=== PATIENT | female | born 1995 | race African-American/Black ===

== ENCOUNTER 2019-04-12 16:29 | Emergency (ER) | payer MEDICAID, SELFPAY ==
[2019-04-12 16:51] VITALS: BP 127/79; PULSE 88; RESP 16; TEMP 36.3; O2SAT 100
--- NOTE | 2019-04-12 17:13 | ED.GENADULT ---
HPI - General Adult General Chief complaint: Dental/Oral Stated complaint: toothache Time Seen by Provider: 04/12/19 17:13 Source: patient Mode of arrival: ambulatory Limitations: no limitations History of Present Illness HPI narrative: 23-year-old female patient presents to the [facility] with complaints of left-sided dental pain for the past 2 to 3 days. Patient states that she has tried ibuprofen to help with pain but it has not helped much. Patient states that she did have an appointment to see her dentist yesterday however when she got to the appointment they states that the dentist had already left and they rescheduled her for next Tuesday. Patient denies any fevers that she is aware of but states that today she noticed that her left cheek is a little bit more swollen. Patient denies any chest pain, shortness of breath or trouble swallowing. Related Data Allergies Allergy/AdvReac Type Severity Reaction Status Date / Time No Known Allergies Allergy Unverified 04/12/19 16:50 Review of Systems Review of Systems: Narrative: CONSTITUTIONAL: Denies fever, chills, or sweats. EYES: Denies visual changes, redness, or discharge. ENT: Denies rhinorrhea, congestion, sore throat, or otalgia. Positive left-sided dental pain x2 to 3 days. CARDIOVASCULAR: Denies chest pain, palpitations, or edema. RESPIRATORY: Denies cough or dyspnea. GASTROINTESTINAL: Denies abdominal pain, nausea, vomiting, or diarrhea. GENITOURINARY: Denies dysuria or hematuria. SKIN: Denies rash or itching. MUSCULOSKELETAL: Denies back pain, joint pain, or myalgia. NEUROLOGIC: Denies headache, numbness, or weakness. PSYCHIATRIC: Denies anxiety or depression. PMFSH Family History Family History Grandparent Family history of lung cancer Social History Social History Smoking status: Never smoker Alcohol intake: never Comments At the time of my signature I agree with nursing past medical history, surgical, social, and family history. There is no relevant family history pertinent to the presenting complaint. Exam Narrative: Exam Narrative: GENERAL: Well-appearing, well-nourished, and in no acute distress. HEAD: Normocephalic, atraumatic. EYES: PERRLA and EOMI. ENT: Nares clear, no rhinorrhea or epistaxis. Mucous membranes moist. Patient does have some erythema and tenderness noted to the left upper gum area right above the first bicuspid. NECK: Supple. No lymphadenopathy CHEST: Clear to auscultation. No respiratory distress. HEART: Regular rate and rhythm. No murmur heard. Normal peripheral pulses. ABDOMEN: Soft, nontender, nondistended, normal active bowel sounds. EXTREMITIES: Normal range of motion. No edema. SKIN: Warm, dry, no rash. NEURO: No focal deficits. Alert and oriented x3. Course Vital Signs Vital signs: Vital Signs Temperature 36.3 C L 04/12/19 16:51 Pulse Rate 88 04/12/19 16:51 Respiratory Rate 16 04/12/19 16:51 Blood Pressure 127/79 04/12/19 16:51 Pulse Oximetry 100 04/12/19 16:51 Temperature 36.3 C L 04/12/19 16:51 Pulse Rate 88 04/12/19 16:51 Respiratory Rate 16 04/12/19 16:51 Blood Pressure 127/79 04/12/19 16:51 Pulse Oximetry 100 04/12/19 16:51 Vital signs reviewed. Medical Decision Making Differential Diagnosis Differential Diagnosis: Differential diagnosis: Dental caries, periodontal disease, avulsed tooth, tooth infections, mandibular infection, Jimi's angiana, upper tooth infection, dry socket, gingivitis, acute necrotizing ulcerative gingivitis, sialolithiasis. Discussed with patient looks like she is got some kind of infection or possibly an abscess to that left upper gum area and therefore we will discharge her home with some antibiotics and I will also give her a mild narcotic to help with the pain. Discussed with patient that she should continue to follow-up with her dentis
== END 2019-04-12 17:25 | disposition home or self-care (01) ==
PROVIDERS: Emergency Provider Nurse Practitioner Family
DX: K04.7 Periapical abscess without sinus (principal)
CPT/HCPCS: 99213; G0463

== ENCOUNTER 2020-01-18 09:22 | Emergency (ER) | payer BC, SELFPAY ==
[2020-01-18 09:30] VITALS: BP 130/79; PULSE 94; RESP 20; TEMP 36.9; O2SAT 100
--- NOTE | 2020-01-18 09:34 | ED.GENADULT ---
HPI - General Adult General Chief complaint: Urogenital-Female Stated complaint: toothpain/vaginal discharge Time Seen by Provider: 01/18/20 09:25 Source: patient Mode of arrival: ambulatory Limitations: no limitations History of Present Illness HPI narrative: 24 y/o AA female. PMH includes: None reported. Presents to ED today with acute complaints of urinary frequency, urgency, and malodorous urine for past 'few days'. In addition, client notes to have noticed irregular vaginal discharge clear and some odor . She denies fever, chills, abdominal pain, flank pain, N/V/D. No gross hematuria. She reports to have been sexually active with condoms sometimes . She relays to have had only one sexual partner in past 1 year. [facility] 1 week ago. She is also concerned that her wisdom tooth has been hurting her , but adds she plans to follow-up with her established dentist in the next few weeks. No additional acute c/o upon PE. Related Data Home Medications Medication Instructions Recorded Confirmed cyclobenzaprine 10 mg PO BID PRN 01/18/20 01/18/20 Allergies Allergy/AdvReac Type Severity Reaction Status Date / Time red dye Allergy Hives Verified 01/18/20 09:39 Review of Systems Review of Systems: Narrative: CONSTITUTIONAL: Denies fever, chills, sweats. EYES: Denies visual changes, redness, discharge. ENT: Denies rhinorrhea, congestion, sore throat, otalgia. Positive Dental Pain. CARDIOVASCULAR: Denies chest pain, palpitations, edema. RESPIRATORY: Denies dyspnea, wheezing, cough GASTROINTESTINAL: Denies abdominal pain, nausea, vomiting, diarrhea. GENITOURINARY: Denies hematuria. Positive urinary frequency, urgency, abnormal vaginal discharge. SKIN: Denies rash or itching. MUSCULOSKELETAL: Denies acute back pain, joint pain, or myalgia. NEUROLOGIC: Denies numbness, or focal weakness. PSYCHIATRIC: Denies anxiety or depression. [facility] Family History Family History Grandparent Family history of lung cancer Social History Social History Smoking status: Never smoker Alcohol intake: never Exam Narrative: Exam Narrative: GENERAL: This is a well-nourished, well-developed patient, in no apparent distress. HEAD: normocephalic, atraumatic. EYES: PERRL. Sclera clear/white. Vision is grossly intact. EARS: External ears normal, auditory canals clear and without drainage, TMs normal without perforation. Hearing grossly intact. NOSE: External nose normal with no obvious nasal discharge, nares without redness, no rhinorrhea. THROAT/DENTAL: Mucous membranes moist, posterior pharynx clear. There is wisdom molar eruption at posterior LT lower level. There is no obvious soft tissue swelling or fluctuance. There is erythema, dental or gum bleeding. No significant tenderness to area. NECK: Neck supple, non-tender without lymphadenopathy, masses or thyromegaly. CARDIOVASCULAR: Regular rate and rhythm without murmurs, gallops, or rubs. RESPIRATORY: Clear to auscultation. Breath sounds equal bilaterally. No wheezes, rales, or rhonchi. GASTROINTESTINAL: Abdomen soft, non-tender, nondistended. Bowel sounds are active. No hepato-splenomegaly, or palpable masses. No guarding. There is no appreciated CVA tenderness. SKIN: warm, intact with no suspicious lesions or rash, good texture and turgor. NEURO: awake, alert, and oriented to person, place and time. There were no obvious focal neurologic abnormalities. Steady gait EXTREMITIES: Normal range of motion. No edema. No calf tenderness. Negative Homans sign bilaterally. BACK: Nontender without deformity or crepitance. No flank tenderness. : Deferred. Const: General: no acute distress Orientation/consciousness: patient oriented x3 Course Course Emergency Course: Laboratory studies sent for analysis (GC/Chlamydia, Trichomonas, UA, ,HCG U). This has been sent via Urine specimen, as we do not curren
[2020-01-18] MEDS: cefTRIAXone 250 MG VIAL IM (10:19)
== END 2020-01-18 10:47 | disposition home or self-care (01) ==
PROVIDERS: Emergency Provider Nurse Practitioner Adult Health
DX: N39.0 Urinary tract infection, site not specified (principal); N89.8 Other specified noninflammatory disorders of vagina; K08.89 Other specified disorders of teeth and supporting structures
CPT/HCPCS: 81003; 81025; 87086; 87088; 87491; 87591; 87661; 96372; 99214; G0463; J0696

== ENCOUNTER 2021-01-01 17:56 | Emergency (ER) | payer OTHER, SELFPAY ==
[2021-01-01 18:09] VITALS: BP 150/85; PULSE 101; RESP 14; TEMP 36.3; O2SAT 100
--- NOTE | 2021-01-01 18:11 | ECG_ITS ---
Measurements Intervals [place] Rate: 89 P: 56 TX: 143 QRS: 50 QRSD: 75 T: -1 QT: 334 QTc: 406 Interpretive Statements SINUS RHYTHM POSSIBLE LEFT ATRIAL ENLARGEMENT BORDERLINE ST-T WAVE ABNORMALITY- INFERIOR LEADS BORDERLINE ECG Electronically Signed On 01-01-2021 20:33:34 CDT by Sonu Londono D.O.
[2021-01-01 18:35] LABS: Basophils Percent Auto 0.6 % (0.2-1.2); Eosinophils Absolute Auto 0.1 K/mm3 (0-0.3); Hematocrit 34.8 % (37.0-47.0); Hemoglobin 11.2 g/dL (12.0-15.0); Immature Granulocyte Absolute 0.01 K/mm3 (0.00-0.031); Immature Granulocyte Percent A 0.2 % (0-0.5); Lymphocytes Absolute Auto 1.85 K/mm3 (0.9-3.2); Lymphocytes Percent Auto 36.6 % (18.3-44.2); Mean Corpuscular HGB Conc 32.2 g/dl (32-36); Mean Corpuscular Hemoglobin 28.6 pg (26-34); Mean Platelet Volume 8.7 fl (7.4-10.4); Monocytes Absolute Auto 0.6 K/mm3 (0.1-0.6); Monocytes Percent Auto 11.5 % (2.6-8.5); Neutrophils Absolute Auto 2.5 K/mm3 (1.3-6.7); Neutrophils Percent Auto 50.1 % (45.5-73.1); Platelet Count Result 374 k/mm3 (150-375); Red Blood Count 3.91 M/mm3 (4.2-5.4); Red Cell Distribution Width 12.5 % (11.5-14.5); White Blood Count 5.1 K/mm3 (4.5-10.0)
[2021-01-01 18:48] LABS: Anion Gap 9 mmol/L (8-16); Blood Urea Nitrogen 7 mg/dL (7-17); Calcium 9.7 mg/dL (8.4-10.2); Carbon Dioxide 27 mmol/L (22-30); Chloride 105 mmol/L (98-107); Estimated CRCL calculation 93 ml/min; Estimated Glomerular Filt Rate > 60; Glucose 98 mg/dL (65-110); Potassium 3.7 mmol/L (3.4-5.0); Sodium 141 mmol/L (137-145)
[2021-01-01 19:30] VITALS: BP 122/73; PULSE 76; RESP 16; O2SAT 100
[2021-01-01 19:56] VITALS: BP 121/80; PULSE 84
[2021-01-01 19:57] VITALS: BP 120/87; PULSE 98
[2021-01-01 19:58] VITALS: BP 114/74; PULSE 88
[2021-01-01 20:04] LABS: Add Urine Microscopic? YES; Appearance Urine Cloudy (Clear); Bilirubin Urine Negative (Negative); Blood Urine Negative (Negative); Color Urine Yellow (Yellow); Glucose Urine UA Negative (Negative); Ketones Urine Negative (Negative); Leukocyte Esterase Ur Trace LEU/UL (Negative); Mucus Urine Few /lpf; Nitrate Urine Negative (Negative); Protein Urine 1+ mg/dL (Negative); Specific Grav Ur 1.021 (1.001-1.035); Squamous Epithelial Cell Urine Many /hpf (Few); Urobilinogen Urine Negative mg/dL (<2.0)
--- NOTE | 2021-01-01 20:08 | ED.GENADULT ---
HPI - General Adult General Chief complaint: Syncope Stated complaint: near syncopal episode yesterday Time Seen by Provider: 01/01/21 19:18 Source: patient Mode of arrival: ambulatory Limitations: no limitations History of Present Illness HPI narrative: Patient is a 25-year-old female with no chronic medical history presenting with chief complaint of feeling as if she was going to pass out yesterday while at work. Patient reports that she has been working and standing for 20 to 30 minutes when she suddenly felt as if she was going to pass out. Patient states that she sat for 10 to 15 minutes and her symptoms resolved without any other interventions. Patient reports that she has had this happen in the past and seen a primary care provider who told her that it sounded like anxiety. Patient reports the last time this happened she has some blurry vision and chest tightness accompanying her symptoms. Patient denies any abnormal symptoms at this time but states that her mother wanted her to be evaluated. Patient denies any headache, change in vision or hearing, nausea, vomiting, neurological deficit, chest pain, shortness of breath or any other symptoms. Patient denies known . Patient denies any recreational drug usage or head injury. Related Data Home Medications Medication Instructions Recorded Confirmed cyclobenzaprine 10 mg PO BID PRN 01/18/20 12/12/20 Allergies Allergy/AdvReac Type Severity Reaction Status Date / Time red dye Allergy Hives Verified 01/01/21 19:31 Review of Systems Review of Systems: CONSTITUTIONAL: Denies fever, chills, or sweats. EYES: Denies visual changes, redness, or discharge. ENT: Denies rhinorrhea, congestion, sore throat, or otalgia. CARDIOVASCULAR: Denies chest pain, palpitations, or edema. RESPIRATORY: Denies cough or dyspnea. GASTROINTESTINAL: Denies abdominal pain, nausea, vomiting, or diarrhea. GENITOURINARY: Denies dysuria or hematuria. SKIN: Denies rash or itching. MUSCULOSKELETAL: Denies back pain, joint pain, or myalgia. NEUROLOGIC: Reports resolved near syncopal episode denies headache, numbness, dizziness, or weakness. PSYCHIATRIC: Denies anxiety or depression. [facility] Past Medical History Medical History Back pain Carpal tunnel syndrome History of benign ovarian tumor Surgical History Surgical History History of left oophorectomy Family History Family History Grandparent Family history of lung cancer Social History Social History Smoking status: Never smoker Alcohol intake: never Exam Narrative: GENERAL: Well-appearing, well-nourished, and in no acute distress. HEAD: Normocephalic, atraumatic. EYES: PERRLA and EOMI. ENT: Nares clear, no rhinorrhea or epistaxis. Mucous membranes moist. Oropharynx without tonsillar hypertrophy exudate or other lesions. Bilateral TMs pearly urban nonbulging NECK: Supple. No adenopathy or masses. Range of motion intact. CHEST: Clear to auscultation. No respiratory distress. No wheezes rales or rhonchi HEART: Regular rate and rhythm. No murmur heard. Normal peripheral pulses. ABDOMEN: Soft, nontender, nondistended, normal active bowel sounds. EXTREMITIES: Normal range of motion. No edema. SKIN: Warm, dry, no rash. NEURO: No focal deficits. Alert and oriented x3. Patient able to ambulate without difficulty. Patient able to follow commands appropriately. PSYCH: Normal mood and affect. Course Vital Signs Vital signs: Vital Signs Temperature 97.4 F L 01/01/21 18:09 Pulse Rate 101 H 01/01/21 18:09 Respiratory Rate 14 01/01/21 18:09 Blood Pressure 150/85 H 01/01/21 18:09 Pulse Oximetry 100 01/01/21 18:09 Temperature 97.4 F L 01/01/21 18:09 Pulse Rate 88 01/01/21 19:58 Respirator
[2021-01-01 20:35] VITALS: BP 113/78; PULSE 85; RESP 18; O2SAT 100
== END 2021-01-01 20:36 | disposition home or self-care (01) ==
PROVIDERS: Physician Assistant; Emergency Provider Emergency Medicine
DX: R55 Syncope and collapse (principal); R82.998 Other abnormal findings in urine; R94.31 Abnormal electrocardiogram [ECG] [EKG]
CPT/HCPCS: 36415; 80048; 81001; 81025; 85025; 93005; 99284

== ENCOUNTER 2021-12-30 15:25 | Outpatient (CLI) | payer OTHER, SELFPAY ==
[2021-12-30 17:29] LABS: Hemoglobin A1C 5.3 % (<5.7)
[2021-12-30 18:43] LABS: Vitamin D 25 Hydroxy 22.5 ng/mL
== END 2021-12-30 15:26 | disposition home or self-care (01) ==
LOC: ANHLAB 15:27
PROVIDERS: Visit Provider Obstetrics & Gynecology
DX: E04.9 Nontoxic goiter, unspecified (principal)
CPT/HCPCS: 36415; 82306; 83036; 84436; 84443

== ENCOUNTER 2023-06-28 10:59 | Outpatient (CLI) | payer OTHER, SELFPAY ==
[2023-06-28 12:06] LABS: Hemoglobin A1C 5.2 % (<5.7)
[2023-06-28 12:24] LABS: Free T4 Free Thyroxine 1.18 ng/mL (0.78-2.19)
[2023-06-28 12:25] LABS: HIV 1/2 Ab P24 Ag Result Negative (Negative)
[2023-06-28 12:37] LABS: Hepatitis B Surface Antigen Negative (Negative)
[2023-06-28 12:54] LABS: Hepatitis C Virus Antibody Negative (Negative)
[2023-06-28 19:58] LABS: Progesterone 11.2 ng/mL
[2023-06-29 09:11] LABS: Rapid Plasma Reagin Non-Reactive (NonReactive)
[2023-06-29 16:33] LABS: Insulin Level Total 23.6 uIU/mL
[2023-06-29 17:32] LABS: FSH 2.5 mIU/mL; LH 1.3 mIU/mL
[2023-06-30 19:03] LABS: Testosterone Free 4.1 pg/mL (0.1-6.4); Testosterone Total 43 ng/dL (2-45)
== END 2023-06-28 11:00 | disposition home or self-care (01) ==
PROVIDERS: Visit Provider Obstetrics & Gynecology
DX: N85.2 Hypertrophy of uterus (principal); N92.0 Excessive and frequent menstruation with regular cycle
CPT/HCPCS: 36415; 83001; 83002; 83036; 83525; 84144; 84402; 84403; 84439; 84443; 86592; 86703; 86803; 87340; G0432

== ENCOUNTER 2023-06-30 14:34 | Outpatient (CLI) | payer OTHER, SELFPAY ==
--- NOTE | ~2023-06-30 | US_ITS ---
EXAMINATION: US pelvic complete w TV DATE: 06/30/2023 15:09 INDICATION: Hypertrophy of uterus. TECHNIQUE: Multiple transabdominal and transvaginal sonographic images of the pelvis were obtained. COMPARISON: None. FINDINGS: TRANSABDOMINAL ULTRASOUND: The uterus measures 9.0 x 5.1 x 5.5 cm. There is no free fluid in the pelvis. TRANSVAGINAL ULTRASOUND: The endometrial complex measures 15 mm in thickness. There is a 9.7 x 6.4 x 11.1 cm mass of mixed ech ogenicity in the right adnexa. The left ovary is not visualized. IMPRESSION: 1. 11.1 cm mass in right adnexa, which may be a dermoid or neoplasm. Pelvis MRI without and with cont rast is recommended. 2. Left ovary not visualized. Reviewed, dictated and finalized at location E. IMPRESSION: 1. 11.1 cm mass in right adnexa, which may be a dermoid or neoplasm. Pelvis MRI without and with contrast is recommended. 2. Left ovary not visualized.
== END 2023-06-30 14:35 ==
PROVIDERS: PCP Obstetrics & Gynecology; Visit Provider Obstetrics & Gynecology
DX: N85.2 Hypertrophy of uterus (principal)
CPT/HCPCS: 76830; 76856

== ENCOUNTER 2023-07-18 07:50 | Outpatient (CLI) | payer OTHER, SELFPAY ==
--- NOTE | ~2023-07-18 | MR_ITS ---
EXAMINATION: MR pelvis wo/w con DATE: 07/18/2023 09:20 INDICATION: Right adnexal mass. Abdominal and pelvic swelling. TECHNIQUE: Magnetic resonance imaging (MRI) of the pelvis was performed without and with 19 mL MultiH ance intravenous contrast. COMPARISON: Pelvis ultrasound 06/30/2023 FINDINGS: In the right adnexa, there is an 11.6 x 9.3 x 10.9 cm heterogeneous mass that includes a large fat co mponent, consistent with a dermoid. The mass crosses the midline to the left adnexa. The left ovary i s not identified. The uterus is normal. The endometrial complex measures 15 mm in thickness. There is physiologic fluid in the pelvis. There are no dilated loops of bowel. There are no pathologically en larged lymph nodes. IMPRESSION: 1. 11.6 cm dermoid in the right adnexa. 2. Left ovary not identified. Reviewed, dictated and finalized at location A.
== END 2023-07-18 07:51 ==
PROVIDERS: PCP Obstetrics & Gynecology; Visit Provider Obstetrics & Gynecology
DX: D28.7 Benign neoplasm of other specified female genital organs (principal)
CPT/HCPCS: 72197; A9577

== ENCOUNTER 2023-10-12 16:02 | Inpatient (IN) | payer BC, SELFPAY ==
[2023-10-06 09:58] VITALS: BMI 41.7
--- NOTE | 2023-10-06 10:04 | PC.NURSE ---
Report to the Outpatient Waiting Room, entrance under the green pavilion located off [facility], at time _0800_ on date _[id number]_. Planned Procedure Time: _1000_. Time changes happen often and if your time is changed the preop area will call you the afternoon before. - You and your visitor will be asked to self-screen and do not enter if you have any COVID symptoms. - A mask is optional within the hospital at this time. Patients may have clear liquids (water, carbonated beverages, clear teas, apple juice) until 3 hours prior to surgery with a maximum of 20 ounces. - No food from midnight until time of surgery Take the following medications with a SIP of water the morning of surgery: None DO NOT STOP ANY OF YOUR OTHER PRESCRIPTION MEDICATIONS PRIOR TO SURGERY ?EXCEPT THE FOLLOWING Medications to discontinue per physician None Date to take last dose Please no make-up, nail hebrew, hairspray, perfume, deodorant, or body powder the day of surgery. No jewelry (including any body piercings) or valuables the day of surgery, leave them at home. Please take a shower or bath the night before, or the morning of, surgery with an antibacterial soap. Wear comfortable, loose fitting clothing. - Jewelry must be removed prior to entering the operating room. Rings and piercings that are not removed may be cut off. - The hospital will not accept responsibility for valuables. - Please leave all valuables, including medications, at home the day of surgery. If you are going home after surgery, a licensed national dedicated truck driver must drive you home. - NO public transportation without another adult if you receive anesthesia. - We recommend that an adult stay with you for 24 hours following discharge. - We also recommend that you do not drive, make important decision, drink alcoholic beverages, or take any drugs that were not prescribed by your health care provider for at least 24 hours after your discharge time. Follow any additional instructions given to you from your surgeon. If you or anyone in your household have experienced Covid symptoms in the past week, please notify your surgeon or the nurse liaison at the phone number below for possible testing. Telephone instructions given to ___Taylorine____and asked if any additional questions and then verbalized understanding. Patient advised to call surgeon office or pre surgery nurse liaison [phone] if any additional questions.
[2023-10-12] VITALS (14 sets, daily range): BP systolic 103–138; BP diastolic 57–97; PULSE 76–105; RESP 11–19; TEMP 36.4–37.3; O2SAT 95–100
--- NOTE | ~2023-10-12 | CT_ITS ---
EXAMINATION: CT abdomen pelvis w con DATE: 10/13/2023 21:38 INDICATION: Fever post abdominal surgery TECHNIQUE: Computed tomography (CT) of the abdomen and pelvis was performed with 100 mL Omnipaque-350 intravenous contrast. Automated exposure control and iterative reconstruction technique were employe d. The dose-length product was 1088.98 mGy-cm. COMPARISON: MR pelvis dated 07/18/2023 FINDINGS: Mild bibasilar lower lobar atelectasis. Heart size is normal. No pericardial or pleural effusion. Ramila er, gallbladder, spleen, pancreas, bilateral adrenal glands and kidneys are normal. Fluid in the prox imal colon consistent with diarrhea. No bowel obstruction. Bladder and uterus are unremarkable. Small amount of nonloculated free fluid in the pelvis. There is also scattered free intraperitoneal gas al bryan the nondependent liver and soft tissue gas in the anterior abdominal wall consistent with recent surgery. The large right ovarian dermoid seen on the prior MRI is no longer visualized and has likely been resected. No abscess. No pathologically enlarged abdominal or pelvic lymphadenopathy. IMPRESSION: 1. Postoperative changes consistent with recent right ovarian dermoid resection. No abscess. Reviewed, dictated and finalized at location A. IMPRESSION: 1. Postoperative changes consistent with recent right ovarian dermoid resection . No abscess.
--- NOTE | ~2023-10-12 | XR_ITS ---
EXAMINATION: XR chest 1V portable DATE: 10/13/2023 20:31 INDICATION: Fever after abdominal surgery TECHNIQUE: frontal view of the chest was obtained. COMPARISON: None FINDINGS: The lungs are clear with no focal airspace opacities, pulmonary edema, pleural effusion or pneumothor ax. The cardiomediastinal silhouette is normal. Visualized bones and soft tissues are unremarkable. IMPRESSION: 1. No acute cardiopulmonary disease. Reviewed, dictated and finalized at location A.
[2023-10-12] MEDS: LACTATED RINGERS 1,000 ML 30 ML IV CONT ×2 (09:20→10:00)
[2023-10-12] MEDS: ACETAMINOPHEN 500 MG TABLET 1000 MG PO (09:20)
[2023-10-12] MEDS: KETOROLAC 15 MG/ML VIAL (*BKC) IV PUSH (09:20)
--- NOTE | 2023-10-12 09:36 | WPDHPUPDATE1 ---
History and Physical Update Update Date/Time: 10/12/23 09:36 History and Physical has been reviewed, including an updated exam of the patient. There are NO changes in the patient's condition. Risks, benefits, and alternatives have been discussed and questions answered. Patient agrees to proceed with procedure.
--- NOTE | 2023-10-12 09:39 | WPDANESEPPF ---
Anes - Initial Pre Proc Eval Procedure: Operation Date: 10/12/23 10:00 Proposed Procedures p Laparoscopic Right Ovarian Cystectomy - Abdelrahman Alba MD Date/Time: 10/12/23 09:39 Surgeon: Abdelrahman Alba MD Pre Op Diagnosis: right Dermoid cyst Pre Op Diagnosis: Dermoid Cyst, Right Patient Data Age: 27 Gender: F Height: 1.56 m Weight: 101.8 kg Allergies Allergy/AdvReac Type Severity Reaction Status Date / Time red dye Allergy Hives Verified 10/06/23 14:35 Home Medications Medication Instructions Recorded Confirmed Type No Home Medications 04/26/22 10/06/23 History : patient denies HCG: negative Patient hx anesthesia problems: none Family hx anesthesia problems: none Results Review: All pre-operative results and documents have been reviewed as part of the pre-operative evaluation. [facility] Past Medical History Medical History Back pain Body mass index (BMI) greater than 30 (02/03/17) Carpal tunnel syndrome Cyst of Bartholin's gland History of benign ovarian tumor Obesity Vulvar cyst Surgical History Surgical History History of left oophorectomy Family History Family History Grandparent Family history of lung cancer Social History Social History Smoking status: Never smoker Alcohol intake: current Living arrangements: with family Spiritual care concerns: No Anes - Eval Final PreProcedure Day of Procedure 10/12/23 09:39 Patient weight: obese Heart: regular rate and rhythm Lungs: clear to auscultation Airway: Mallampati scale class II Neurological: alert and oriented Last oral intake: >/= 8 hours ASA classification: II Emergent: no Anesthetic plan: proceed Anesthesia type and monitoring: general ETT and standard monitoring Results Review: All pre-operative results and documents have been reviewed as part of the pre-operative evaluation. Informed Consent: The patient's anesthetic plan and its attendant risks and benefits were discussed with the patient/family/POA. Questions were solicited and answers provided to the satisfaction of the patient/family/POA.
[2023-10-12 09:55] LABS: BEDSIDEPREGUCG Negative
[2023-10-12] MEDS: ceFAZolin 2 GM/D5W 50 ML 2 GM/50 ML BAG IVPB ×2 (10:14→18:40)
[2023-10-12] MEDS: BUPIVACAINE/EPINEPHRINE 0.5% 10 ML VIAL 20 ML INFILTRATE (10:19)
[2023-10-12] MEDS: fentaNYL CITRATE INJ (*CRX) 100 MCG/2 ML VIAL 25 MCG IV PUSH ×5 (13:30→13:38)
[2023-10-12] MEDS: HYDROmorphone HCL INJ (*CRX) 1 MG/ML SYR 0.25 MG IV PUSH (14:15)
--- NOTE | 2023-10-12 16:30 | ADMGEN ---
1605-This patient, Ivonne Turcios, was admitted to OB 2nd Floor Room 289-00. Patient/family oriented to hospital policies and general routines including ID bracelet, bed and alarms, visiting hours, pain management, procedures, bathroom and other care routines, personal items, smoking policy, room service/diet, and visiting hours. Information on how to activate the Rapid Response Team has been discussed. Patient/Family are encouraged to report perceived risks to care and to ask questions if they do not understand what they are told or what they should do.
[2023-10-12] MEDS: KETOROLAC 30 MG/ML VIAL (*BKC) IV PUSH ×2 (17:11→22:07)
[2023-10-12] MEDS: SIMETHICONE 80 MG TAB.CHEW PO (17:12)
[2023-10-12] MEDS: DEXTROSE 5%/0.45% SOD CHL 1,000 ML 125 ML IV CONT (17:13)
[2023-10-12] MEDS: HYDROcodone/acetaminophen (*CRX) 10-325 MG TABLET 1 TAB PO (20:26)
--- NOTE | 2023-10-12 22:17 | W.PM.PROC2 ---
Procedure Note - Detailed Date of Procedure 10/12/23 Pre-op Diagnosis Dermoid Cyst, Right Post-op Diagnosis Other (1. Right dermoid cyst 2. Abdominal pelvic adhesions) Procedure Performed 1. Laparoscopic lysis of adhesions 2. Exploratory laparotomy 3. Right dermoid excision 4. Right salpingectomy 5. Cystoscopy Surgeon Abdelrahman Alba MD Anesthesia General Indications Right dermoid cyst Findings Extensive adhesions of omentum to mid and right abdomen, large right dermoid cyst measuring approximately 16cm, multiloculated comprising the whole ovary, no normal ovarian tissue. Adhesion of dermoid to right fallopian tube, posterior uterus, right fallopian tube, colon, cul de sac. The cyst comprised of multi lobe with components large amount of hair and fatty, sebaceous material. Jetting observed from right ureter orifice. Description of Procedure After informed consent was obtained. Patient was placed under general anaesthetic the patient was placed in the supine position. An exam under anesthesia was performed. Fullness palpated on right and cul de sac area. Straight toussaint catheter inserted, 200cc of yellow urine obtained. She was prepped and draped in the usual sterile fashion. Attention was turned to abdomen, two cm above umbilicus, marcaine was injected subcutaneously and an incision made. A Verrres needle was inserted. Confirmation into abdomen obtained with normal peritoneal pressure and free flow of saline through verres port. A 5 mm port was inserted under laparoscopic visualization. Attention was turned to the right side and marcaine injected subcutaneously and an incision was made and a 5mm port inserted under laparoscopic visualization. The ligature and scissors were used to lyse adhesions of omentum to abdominal was at mid and lower and right abdomen. An incision made at right of abdomen, and marcaine injected subcutaneously and a 10 mmm port was inserted once the adhesions were lysed for visualization. Additional adhesions were lysed to obtain visualization of pelvis and mass. The lysis of adhesions took approximately twenty minutes. The mass was noted to extend from the right ovary to the left side wall. The mass was free from the left side and then dense adhesions noted from mid to right pelvis and adhesions to colon. Decision was made at this time to perform laparoscopy. A Pfannensteil skin incision was made through the patient?s previous incision. The incision was carried down to the fascia with sharp and cautery dissection. The fascia was incised transversely and dissected off the rectus muscle using sharp and cautery dissection. Electrocautery was used for hemostasis. The peritoneum was opened taking care not to injure any underlying structures.The pelvic organs were visualized. The right dermoid mass which the right fallopian tube and broad ligament extended over it on the right side. It appeared to be multi lobed. The bowel was packed out of the pelvis. The farida retractor was placed. Muscle protected with laps on both side prior to placement of retractor. The lysis of adhesions from colon and surrounding tissues of the mass took approximately, an hour to free the mass from adhesions. The mass had to opened at several sites during the dissection of adhesions,and contents suctioned. The dermoid with fallopian tubes was excised hemostasis noted. The pelvis was vigorously irrigated. A simple stitch of 4.0 silk was used to approximate a superficial area of on the right side of colon and vanessa colonic fat that appeared slightly denuded. The bowel pack was then removed. All packs were removed from the abdomen. The subfascial space was inspected and hemostasis obtained with cautery. The fascia was closed using a running fashion with 0 PDS loop. Subcutaneous tissue was inspected, irrigated and hemostasis ensured with cautery. The subcutaneous tissue was approximated with 4.0 vicryl. A cystoscopy was performed and jetting from the ureteral orifi was visualized
[2023-10-13 00:15] VITALS: BP 124/74; PULSE 78; RESP 18; TEMP 36.6
[2023-10-13] MEDS: HYDROcodone/acetaminophen (*CRX) 10-325 MG TABLET 1 TAB PO ×2 (01:50→08:38)
[2023-10-13] MEDS: ceFAZolin 2 GM/D5W 50 ML 2 GM/50 ML BAG IVPB ×2 (02:40→10:45)
[2023-10-13 03:20] VITALS: BP 105/78; PULSE 94; RESP 18; TEMP 37.4
[2023-10-13] MEDS: MORPHINE SULFATE (*CRX) 4 MG/ML INJ IV PUSH ×2 (05:09→11:26)
[2023-10-13 07:30] VITALS: BP 112/64; PULSE 96; RESP 18; TEMP 36.8; O2SAT 100
[2023-10-13] MEDS: SIMETHICONE 80 MG TAB.CHEW PO ×3 (08:39→17:47)
[2023-10-13] MEDS: KETOROLAC 30 MG/ML VIAL (*BKC) IV PUSH ×2 (09:53→20:13)
--- NOTE | 2023-10-13 13:20 | PM.GYNPNOP ---
RESIDENT CARE TECHNICIAN - A/P Assessment and plan (1) Post-operative state: Code(s): Z98.890 - Other specified postprocedural states Status: Acute Assessment and Plan: POD1. Will change oral analgesia. Encourage ambulation. Will add IV pepcid. Postoperative Procedures: Procedures Operation Date: 10/12/23 10:00 Actual Procedure Side Surgeon p Attempted Laparoscopic Right Ovarian Cystectomy, Open Laparotomy with Removal of Right Dermoid Cyst and Right Ovary and Cystoscopy Right Abdelrahman Alba MD Time Spent With Patient Time: Total time spent is greater than 50% in coordination of care (as documented) at patient's floor/unit and/or counseling patient: Time with patient: less than 15 minutes RESIDENT CARE TECHNICIAN- PN:Subj Post-Op Subjective Date/time seen: 10/13/23 13:20 Interval history: She has gotten up to urinate without problems, reports not adequate pain control, she has not ambulated, no flatus, sore throat. No chest pain or SOB. She did get do ok taking a shower. Exam Const: General: no acute distress Eyes: General: appearance normal, both eyes and all related structures Resp: Effort & Inspection: normal respiratory effort Auscultation: clear to auscultation bilaterally Cardio: Rate: regular rate Rhythm: regular rhythm GI: Other: hypoactive bowel sounds, incision intact, no drainage, appropriate tender Extrem: General: normal to inspection (nontender) RESIDENT CARE TECHNICIAN - PN: Obj Data Vital Signs Vital Signs: Vital Signs - 24 hr 10/12/23 13:29 10/12/23 13:44 10/12/23 14:14 Temperature Pulse Rate 80 78 77 Respiratory Rate 16 19 14 Blood Pressure 123/82 132/76 138/97 H Pulse Oximetry 100 100 100 Oxygen Delivery Simple Face Mask Simple Face Mask Simple Face Mask Oxygen Flow Rate 8 8 8 10/12/23 13:59 10/12/23 14:29 10/12/23 14:44 Temperature Pulse Rate 87 95 89 Respiratory Rate 16 14 12 Blood Pressure 130/78 126/84 137/73 Pulse Oximetry 100 97 95 Oxygen Delivery Simple Face Mask Room Air Room Air Oxygen Flow Rate 8 10/12/23 14:59 10/12/23 15:15 10/12/23 15:29 Temperature Pulse Rate 92 92 89 Respiratory Rate 13 11 L 16 Blood Pressure 125/77 122/67 115/73 Pulse Oximetry 98 98 100 Oxygen Delivery Room Air Room Air Room Air Oxygen Flow Rate 10/12/23 15:44 10/12/23 16:30 10/12/23 16:30 Temperature 99.1 F Pulse Rate 105 H 88 88 Respiratory Rate 12 18 18 Blood Pressure 121/74 119/74 Pulse Oximetry 100 99 99 Oxygen Delivery Room Air Room Air Oxygen Flow Rate 10/12/23 20:00 10/12/23 20:00 10/13/23 00:15 Temperature 98.8 F Pulse Rate 90 Respiratory Rate 18 Blood Pressure 118/68 Pulse Oximetry 99 Oxygen Delivery Room Air Room Air Oxygen Flow Rate 10/13/23 00:15 10/13/23 03:20 10/13/23 03:20 Temperature 97.9 F 99.3 F Pulse Rate 78 94 Respiratory Rate 18 18 Blood Pressure 124/74 105/78 Pulse Oximetry Oxygen Delivery Room Air Oxygen Flow Rate 10/13/23 07:30 Temperature 98.2 F Pulse Rate 96 Respiratory Rate 18 Blood Pressure 112/64 Pulse Oximetry 100 Oxygen Delivery Oxygen Flow Rate Intake/Output Intake/Output: Intake & Output 10/10/23 10/11/23 10/12/23 10/13/23 23:59 23:59 23:59 23:59 Intake Total 100 1100 Output Total 1000 Balance -900 1100 Meds/Results Medications: Active Medications Generic Name Dose Route Start Last Admin Trade Name Freq PRN Reason Stop Dose Admin Famotidine 20 mg 10/13/23 21:00 Famotidine 20 Mg/2 Ml Vial IV PUSH Q12HR ARJUN Dextrose/Sodium Chloride 1,000 mls @ 125 mls/hr 10/12/23 15:10 10/13/23 11:21 Dextrose 5% Sodium Chloride 0.45% IV CONT Not Given .Q8H ARJUN Ketorolac Tromethamine 30 mg 10/12/23 15:07 10/13/23 09:53 Ketorolac 30 Mg/Ml Vial (*Bkc) IV PUSH 10/17/23 15:06 30 mg Q6H PRN Administration Pain Rated 4-6 Naloxone HCl 0.1 mg 10/12/23 15:07 Naloxone Hcl 0.4 Mg/Ml Vial IV PUSH Q2M PRN Respiratory rate less nikki
[2023-10-13] MEDS: oxyCODONE/ACETAMINOPHEN (*CRX) 5-325 MG TABLET 1 TABLET PO ×2 (13:38→17:46)
--- NOTE | 2023-10-13 14:33 | WPDANESPN ---
Anes - Prog Note Post-Op Date/Time: 10/13/23 14:33 Cardiovascular status: normal Respiratory status: normal Airway patency: baseline Mental status: baseline Post-Op hydration status: normal Vital Signs: Last Vital Signs Temp 36.8 C 10/13/23 07:30 Pulse 96 10/13/23 07:30 Resp 18 10/13/23 07:30 BP 112/64 10/13/23 07:30 Pulse Ox 100 10/13/23 07:30 O2 Del Method Room Air 10/13/23 03:20 O2 Flow Rate 8 10/12/23 14:14 Pain Score (VAS): 410 I/O: Intake & Output 10/12/23 10/13/23 10/13/23 23:59 07:59 15:59 Intake Total 50 1050 50 Output Total 1000 Balance -950 1050 50 Post-procedural complaints: none Patient Feedback: Patient satisfied with anesthetic care.
[2023-10-13] MEDS: FAMOTIDINE 20 MG/2 ML VIAL IV PUSH (15:20)
[2023-10-13] MEDS: polyethylene glycoL 3350 17 GM POWD.PACK PO (17:47)
--- NOTE | 2023-10-13 17:52 | PC.NURSE ---
Offered pt pepsi with prune juice per MD suggestion. Pt refused at this time and explained that she does not like soda.
[2023-10-13 19:45] VITALS: BP 113/75; PULSE 112; RESP 20; TEMP 38.3; O2SAT 100
[2023-10-13 20:00] VITALS: BP 113/75; PULSE 112; RESP 20; TEMP 38.3; O2SAT 100
[2023-10-13 21:14] LABS: Alanine Aminotransferase 13 U/L (6-35); Albumin Level 3.5 g/dL (3.5-5.1); Alkaline Phosphatase 58 U/L (38-126); Anion Gap 7 mmol/L (4-12); Aspartate Amino Transferase 26 U/L (14-36); Bilirubin,Total 0.4 mg/dL (0.2-1.3); Blood Urea Nitrogen 5 mg/dL (7-17); Calcium 8.7 mg/dL (8.4-10.2); Carbon Dioxide 28 mmol/L (22-30); Chloride 100 mmol/L (98-107); Estimated CRCL calculation 100 ml/min; Estimated Glomerular Filt Rate > 60; Glucose 91 mg/dL (65-110); Sodium 135 mmol/L (137-145)
[2023-10-13] MEDS: oxyCODONE/ACETAMINOPHEN (*CRX) 10-325 MG TABLET 1 TAB PO (21:44)
[2023-10-14] MEDS: oxyCODONE/ACETAMINOPHEN (*CRX) 10-325 MG TABLET 1 TAB PO ×5 (01:49→20:40)
[2023-10-14 01:50] VITALS: TEMP 37.6
[2023-10-14] MEDS: SIMETHICONE 80 MG TAB.CHEW PO ×3 (08:23→16:13)
[2023-10-14] MEDS: polyethylene glycoL 3350 17 GM POWD.PACK PO (08:24)
[2023-10-14 08:30] VITALS: BP 125/85; PULSE 106; RESP 16; TEMP 37.6; O2SAT 100
[2023-10-14] MEDS: POTASSIUM CHLORIDE 20 MEQ ER TABLET 40 MEQ PO (09:28)
[2023-10-14] MEDS: KETOROLAC 30 MG/ML VIAL (*BKC) IV PUSH ×2 (09:29→20:41)
[2023-10-14] MEDS: FAMOTIDINE 20 MG/2 ML VIAL IV PUSH (09:30)
--- NOTE | 2023-10-14 10:35 | PM.GYNPNOP ---
GERIATRIC NURSING ASSISTANT - A/P Assessment and plan (1) Post-operative state: Code(s): Z98.890 - Other specified postprocedural states Status: Acute Assessment and Plan: POD2. Her pain was improved until this am. Pain significant this am, most likely due to the timing of pain meds. She did feel better with Percocet. Will continue. Encourage ambulation. CT was ordered last pm due to increase pain. Results were normal post op findings. (2) Hypokalemia: Code(s): E87.6 - Hypokalemia Status: Acute Assessment and Plan: Replacement ordered. (3) Low grade fever: Code(s): R50.9 - Fever, unspecified Status: Acute Assessment and Plan: UA and culture pending. Chest xray normal. CBC ordered. May be secondary to atelectasis, IS ordered. Encouraged ambulation. (4) Atelectasis: Code(s): J98.11 - Atelectasis Status: Acute Assessment and Plan: per above. Postoperative Procedures: Procedures Operation Date: 10/12/23 10:00 Actual Procedure Side Surgeon p Attempted Laparoscopic Right Ovarian Cystectomy, Open Laparotomy with Removal of Right Dermoid Cyst and Right Ovary and Cystoscopy Right Abdelrahman Alba MD Time Spent With Patient Time: Total time spent is greater than 50% in coordination of care (as documented) at patient's floor/unit and/or counseling patient: Time with patient: less than 15 minutes GERIATRIC NURSING ASSISTANT- PN:Subj Post-Op Subjective Date/time seen: 10/14/23 10:35 Interval history: She states she had good pain control last night after higher dose of Percocet. She did have flatus and BM last night after walking. She slept well for 8 hours and then had severe pain this morning. She did not take any pain meds for 7-8 hours. She is tolerating regular diet. She c/o tingling in fingertips. No dysuria. It was most uncomfortable this morning when she got up. She tolerated regular diet. Throat and reflux symptoms better. CT ordered due to her pain yesterday and it showed normal post op changes. Exam Const: General: no acute distress Eyes: General: appearance normal, both eyes and all related structures Resp: Effort & Inspection: normal respiratory effort Neuro: General: patient oriented x3 Extrem: General: normal to inspection (nontender) GERIATRIC NURSING ASSISTANT - PN: Obj Data Vital Signs Vital Signs: Vital Signs - 24 hr 10/13/23 19:45 10/13/23 20:00 10/14/23 01:50 Temperature 100.9 F H 100.9 F H 99.7 F H Pulse Rate 112 H 112 H Respiratory Rate 20 20 Blood Pressure 113/75 113/75 Pulse Oximetry 100 100 Oxygen Delivery Room Air 10/14/23 08:30 Temperature 99.6 F Pulse Rate 106 H Respiratory Rate 16 Blood Pressure 125/85 Pulse Oximetry 100 Oxygen Delivery Intake/Output Intake/Output: Intake & Output 10/11/23 10/12/23 10/13/23 10/14/23 23:59 23:59 23:59 23:59 Intake Total 100 1100 Output Total 1000 Balance -900 1100 Meds/Results Medications: Active Medications Generic Name Dose Route Start Last Admin Trade Name Freq PRN Reason Stop Dose Admin Famotidine 20 mg 10/13/23 21:00 10/14/23 09:30 Famotidine 20 Mg/2 Ml Vial IV PUSH 20 mg Q12HR ARJUN Administration Ketorolac Tromethamine 30 mg 10/12/23 15:07 10/14/23 09:29 Ketorolac 30 Mg/Ml Vial (*Bkc) IV PUSH 10/17/23 15:06 30 mg Q6H PRN Administration Pain Rated 4-6 Naloxone HCl 0.1 mg 10/12/23 15:07 Naloxone Hcl 0.4 Mg/Ml Vial IV PUSH Q2M PRN Respiratory rate less than 10 Ondansetron HCl 4 mg 10/12/23 15:07 Ondansetron Inj 4 Mg/2 Ml Vial IV PUSH Q6H PRN Nausea Oxycodone/Acetaminophen 1 tab 10/13/23 20:04 10/14/23 08:23 Oxycodone/Acetaminophen (*Crx) 10-325 Mg Tablet PO 1 tab Q4H PRN Administration Pain Rated 7-10 Oxycodone/Acetaminophen 1 tablet 10/13/23 20:23 Oxycodone/Acetaminophen (*Crx) 5-325 Mg Tablet PO Q4H PRN Pain Rated 4-6 Polyethylene Glycol 17 gm 10/14/23 09:00 10/14/23 08:24 Polyethylen
[2023-10-14 11:06] LABS: Add Urine Microscopic? YES; Appearance Urine Clear (Clear); Bacteria Urine None Seen /hpf; Bilirubin Urine Negative (Negative); Blood Urine 3+ (Negative); Color Urine Yellow (Yellow); Glucose Urine UA Negative (Negative); Ketones Urine Negative (Negative); Leukocyte Esterase Ur Negative LEU/UL (Negative); Need Manual Microscopic Reviewed; Nitrate Urine Negative (Negative); Non Pathogenic Casts 0-2; Protein Urine Negative (Negative); RBC Urine >100 /hpf (0-2); Specific Grav Ur 1.041 (1.001-1.035); Squamous Epithelial Cell Urine Few /hpf (Few); Urobilinogen Urine 0.2 mg/dL (<2.0); WBC Urine 0-5 /hpf (0-3); pH Urine 6.5 (5.0-9.0)
--- NOTE | 2023-10-14 11:06 | PM.DS ---
DS: Admitting Diagnosis Discharge Date 10/15/23 Admitting Diagnosis Dermoid cyst DS: Discharge Diagnosis Discharge Diagnosis (1) Atelectasis: Code(s): J98.11 - Atelectasis Status: Acute (2) Hypokalemia: Code(s): E87.6 - Hypokalemia Status: Acute (3) Dermoid cyst: Code(s): D36.9 - Benign neoplasm, unspecified site Status: Acute DS: Summary Hospital Course Reason for hospitalization: Planned surgery for dermoid cyst removal. Hospital Course: She was admitted for laparoscopic possible laparotomy for dermoid excision. She underwent laparoscopic lysis of adhesions and then had exploratory laparotomy for removal of the large dermoid that was significantly adhesed. She had Ancef continued for 24 hours. Post operatively she had trial of several pain medications for pain control. Eventually Percocet 10mg did give her relief. She had a CT abd pelvis on POD 1 due to increase pain and low grade fever, and this showed normal post op changes and atelectasis. Incentive spirometer started. She was able to ambulate and have flatus after obtaining adequate pain control. She wal tolerating regular diet. On post op day two morning she complained of significant pain at incision when getting up and this was after she did not have pain meds for 7 hours. She had potassium replaced orally due to hypokalemia. Urine analysis without signs of UTI. Culture pending. On POD 3. She had adequate pain control, was ambulating and having flatus. She was discharged to home. Status at Discharge Functional status at discharge: independent ambulation Time Spent with Patient Time attestation: Total time spent providing and/or coordinating discharge services: Exam Const: General: cooperative Orientation/consciousness: oriented to person, oriented to place and oriented to time HENMT: Face/Nose/Sinus: Normal external nose present Eyes: General: appearance normal, both eyes and all related structures Resp: Effort & Inspection: normal respiratory effort GI: Inspection: normal to inspection Other: incision intact Skin: General skin exam: normal color Neuro: General: oriented to person, oriented to place and oriented to time Extrem: General: normal to inspection and no calf tenderness Psych: Appearance: grossly normal Mental Status: mental status grossly normal DS: Data Data Completed and Pending Completed studies during hospitalization: Pending at discharge 10/12/23 12:33 Surgical [PTH] Routine Labs on day of discharge: Labs from last 24 hours 10/14/23 10/13/23 02:04 20:58 Sodium 135 L Potassium 3.0 L Chloride 100 Carbon Dioxide 28 Anion Gap 7 BUN 5 L Creatinine 0.80 Estim Creat Clear Calc 100 Estimated GFR > 60 Glucose 91 Calcium 8.7 Total Bilirubin 0.4 AST 26 ALT 13 Alkaline Phosphatase 58 Total Protein 7.0 Albumin 3.5 Urine Color Pending Urine Appearance Pending Urine pH Pending Ur Specific [place] Pending Urine Protein Pending Urine Glucose (UA) Pending Urine Ketones Pending Ur Blood (Man) Pending Urine Nitrate Pending Urine Bilirubin Pending Urine Urobilinogen Pending Ur Leukocyte Esterase Pending Procedures/Treatments: Laparoscopic lysis of adhesions. Exploratory laparotomy. Excision of dermoid and fallopian tube. Cystoscopy. Discharge Plan Discharge Attending physician on discharge: Abdelrahman Alba Consulting providers: Maria E Mosher; Francisco Brar; Reuben Mercer Discharging Clinician: Preston Thomas Patient Disposition: Home, Self-Care Activity: may shower, no straining, no driving and pelvic rest Diet: regular Discharge Instructions: Some Complications to Watch for: ? Excessive incisional or vaginal drainage (more than one pad an hour). Additional Instructions: ? Expect some vaginal spotting for 2-4 days. ? Nothing vaginally (i.e. douching, intercourse, tampons) until f
[2023-10-14 11:22] LABS: Basophils Percent Auto 0.3 % (0.2-1.2); Eosinophils Percent Auto 0.5 % (0-4.4); Hematocrit 28.2 % (37.0-47.0); Hemoglobin 8.8 g/dL (12.0-15.0); Immature Granulocyte Absolute 0.01 K/mm3 (0.00-0.031); Immature Granulocyte Percent A 0.2 % (0-0.5); Lymphocytes Percent Auto 29.6 % (18.3-44.2); Mean Corpuscular HGB Conc 31.2 g/dl (32-36); Mean Corpuscular Hemoglobin 26.3 pg (26-34); Mean Corpuscular Volume 84.2 fl (80-100); Mean Platelet Volume 8.6 fl (7.4-10.4); Monocytes Absolute Auto 0.6 K/mm3 (0.1-0.6); Monocytes Percent Auto 10.5 % (2.6-8.5); Neutrophils Absolute Auto 3.6 K/mm3 (1.3-6.7); Neutrophils Percent Auto 58.9 % (45.5-73.1); Platelet Count Result 305 k/mm3 (150-375); Red Blood Count 3.35 M/mm3 (4.2-5.4); Red Cell Distribution Width 13.8 % (11.5-14.5); White Blood Count 6.1 K/mm3 (4.5-10.0)
[2023-10-14 13:20] VITALS: BP 136/84; PULSE 102; TEMP 36.6; O2SAT 100
[2023-10-14] MEDS: FERROUS GLUCONATE 324 MG TABLET PO (16:13)
[2023-10-14 20:12] VITALS: BP 124/86; PULSE 101; RESP 18; TEMP 37.3; O2SAT 100
[2023-10-15] MEDS: oxyCODONE/ACETAMINOPHEN (*CRX) 10-325 MG TABLET 1 TAB PO ×5 (00:56→17:08)
[2023-10-15] MEDS: SIMETHICONE 80 MG TAB.CHEW PO ×4 (02:26→17:07)
[2023-10-15 05:30] LABS: Anion Gap 4 mmol/L (4-12); Blood Urea Nitrogen 3 mg/dL (7-17); Calcium 8.9 mg/dL (8.4-10.2); Carbon Dioxide 30 mmol/L (22-30); Chloride 103 mmol/L (98-107); Estimated CRCL calculation 113 ml/min; Estimated Glomerular Filt Rate > 60; Glucose 89 mg/dL (65-110); Potassium 3.3 mmol/L (3.4-5.0); Sodium 137 mmol/L (137-145)
[2023-10-15] MEDS: FERROUS GLUCONATE 324 MG TABLET PO ×2 (09:28→17:07)
[2023-10-15 09:30] VITALS: BP 125/67; PULSE 101; RESP 16; TEMP 36.8; O2SAT 100
[2023-10-15] MEDS: polyethylene glycoL 3350 17 GM POWD.PACK PO (09:30)
== END 2023-10-15 17:33 | disposition home or self-care (01) | DRG 742 ==
LOC: ANHOB2 16:11
PROVIDERS: Admitting Provider Obstetrics & Gynecology; Visit Provider Obstetrics & Gynecology
PROC: 0UN40ZZ Release Uterine Supporting Structure, Open Approach (ICD-10-PCS; CPT 49320; principal; 2023-10-12 10:00)
DX: D27.0 Benign neoplasm of right ovary (principal); J98.11 Atelectasis; N73.6 Female pelvic peritoneal adhesions (postinfective); E87.6 Hypokalemia
CPT/HCPCS: 36415; 71045; 74177; 80048; 80053; 81001; 85014; 85018; 85025; 87086; 88305; 88307; A9270; J0330; J0690; J1100; J1170; J1596; J1885; J2250; J2270; J2405; J2704; J2710; J3010; J7120; Q9967

== ENCOUNTER 2023-12-01 07:15 | Outpatient (RCR) | payer BC, SELFPAY ==
[2023-10-24 10:56] VITALS: BMI 43.2
== END 2024-01-09 08:29 | disposition home or self-care (01) ==
LOC: ANHWOC 07:15
PROVIDERS: Visit Provider Obstetrics & Gynecology
DX: L76.33 Postprocedural seroma of skin and subcutaneous tissue following a dermatologic procedure (principal)
CPT/HCPCS: 99212; 99213; 99214; A9270; G0463

== ENCOUNTER 2024-02-09 15:40 | Outpatient (CLI) | payer BC, SELFPAY ==
[2024-02-09 16:33] LABS: Alanine Aminotransferase 16 U/L (6-35); Albumin Level 4.3 g/dL (3.5-5.1); Alkaline Phosphatase 94 U/L (38-126); Aspartate Amino Transferase 25 U/L (14-36); Bilirubin,Total 0.4 mg/dL (0.2-1.3)
== END 2024-02-09 15:41 | disposition home or self-care (01) ==
LOC: ANHLAB 15:40
PROVIDERS: Visit Provider Obstetrics & Gynecology
DX: N95.1 Menopausal and female climacteric states (principal); R23.2 Flushing
CPT/HCPCS: 36415; 80076